=== PATIENT | female | born 1980 | race Caucasian/White ===

== ENCOUNTER 2017-07-13 19:15 | Outpatient (CLI) | payer BC | END 2017-07-14 06:35 | disposition home or self-care (01) | LOC: SLEEP 19:15 | PROVIDERS: ATTEND Pediatrics | DX: G47.33 Obstructive sleep apnea (adult) (pediatric) (principal) | CPT/HCPCS: 95810 ==

== ENCOUNTER 2017-07-27 20:48 | Outpatient (CLI) | payer BC | END 2017-07-28 06:25 | disposition home or self-care (01) | LOC: SLEEP 20:48 | PROVIDERS: ATTEND Nurse Practitioner Family | DX: G47.33 Obstructive sleep apnea (adult) (pediatric) (principal); G47.10 Hypersomnia, unspecified; R06.83 Snoring | CPT/HCPCS: 95811 ==

== ENCOUNTER 2018-04-06 09:21 | Emergency (ER) | payer BC ==
[~2018-04-06] VITALS: Ht 160 cm; Wt 108.9 kg
--- OUTSIDE RECORDS SUMMARY | 2018-04-06 09:27 | XMS REPORT ---
Author Author KARLA GARNER Organization [facility] Address [address] [place] [address] Care Team Providers Care Chief Of Staff Name Role Phone KARLA GARNER Unavailable PROBLEMS Type Condition ICD9-CM Code [id number] Code Onset Dates Condition Status SNOMED Code Problem Generalized anxiety disorder F41.1 Active 57028248 Problem Morbid obesity due to excess calories E66.01 Active 590058356 Problem Bipolar disorder, unspecified F31.9 Active 32373972 Problem SEFERINO (obstructive sleep apnea) G47.33 Active 29126900 Problem Anxiety state, unspecified F41.1 Active 822328546 ALLERGIES Substance Reaction Event Type Date Status Penicillin V Potassium hives Drug Allergy Mar, Active ENCOUNTERS Encounter Location Date Diagnosis [place] [address] [address] May, [address] [address] Apr, Generalized anxiety disorder F41.1 ; Morbid obesity due to excess calories E66.01 ; Pain in right shoulder M25.511 and SEFERINO (obstructive sleep apnea) G47.33 [place] [id number] [place] [address] Apr, [place] [address] [address] [place] [id number] [place] [address] Mar, Cervical radiculopathy M54.[address] [address] January, Bipolar disorder, unspecified F31.9 and Anxiety state, unspecified F41.[address] [address] Oct, Acute non-recurrent maxillary sinusitis J01.00 and Strep pharyngitis J02.0 IMMUNIZATIONS No Known Immunizations SOCIAL HISTORY Never Assessed REASON FOR VISIT Pain (acute) Right Shoulder and PT has seen urgent care for a possible pulled muscle- [place] [facility] PLAN OF CARE Activity Details Follow Up 3 Weeks Reason: VITAL SIGNS Height 63 in 2017-03-30 Weight 246.8 lbs 2017-03-30 Temperature 98.8 degrees Fahrenheit 2017-03-30 Heart Rate 86 bpm 2017-03-30 Respiratory Rate 20 2017-03-30 BMI 43.71 kg/m2 2017-03-30 Blood pressure systolic 110 mmHg 2017-03-30 Blood pressure diastolic 74 mmHg 2017-03-30 MEDICATIONS Medication Instructions Dosage Frequency Start Date End Date Duration Status Gabapentin 300 MG Orally Three times a day 1-2 capsule 8h Mar, 0 days Active Cyclobenzaprine HCl 5 MG Orally Three times a day 1 tablet 8h Active Diclofenac Sodium 75 MG Orally Twice a day as needed 1 tablet with food or milk Active Tramadol HCl 50 mg Orally every 6 hrs 1 tablet as needed 6h Mar, Mar, 0 days Active RESULTS No Results PROCEDURES No Known procedures INSTRUCTIONS MEDICATIONS ADMINISTERED No Known Medications MEDICAL (GENERAL) HISTORY Type Description Date Medical History Bipolar Disorder Medical History Generalized Anxiety Disorder Surgical History Surgical History Abscess-after , left side of abdomen Hospitalization History abdominal wound infection-had wound vac 2012 Hospitalization History Childbirth
--- OUTSIDE RECORDS SUMMARY | 2018-04-06 09:27 | XMS REPORT ---
Author Author ROSARIO HAWLEY Organization [facility] Address [address] [place] [address] Care Team Providers Care Digital Printer Operator Name Role Phone ROSARIO HAWLEY Unavailable PROBLEMS Type Condition ICD9-CM Code [id number] Code Onset Dates Condition Status SNOMED Code Problem Generalized anxiety disorder F41.1 Active 97742737 Problem Morbid obesity due to excess calories E66.01 Active 052427286 Problem Bipolar disorder, unspecified F31.9 Active 62381634 Problem SEFERINO (obstructive sleep apnea) G47.33 Active 51421077 Problem Anxiety state, unspecified F41.1 Active 066625389 ALLERGIES Substance Reaction Event Type Date Status Penicillin V Potassium hives Drug Allergy Apr, Active ENCOUNTERS Encounter Location Date Diagnosis [place] [address] [address] May, [place] [address] [address] Apr, Generalized anxiety disorder F41.1 ; Morbid obesity due to excess calories E66.01 ; Pain in right shoulder M25.511 and SEFERINO (obstructive sleep apnea) G47.33 [place] [address] [place] [id number] [place] [phone] Apr, [place] [address] [place] [id number] [place] [address] Mar, Cervical radiculopathy M54.12 [place] [address] [address] January, Bipolar disorder, unspecified F31.9 and Anxiety state, unspecified F41.1 [place] [address] [place] [id number] [place] [address] Oct, Acute non-recurrent maxillary sinusitis J01.00 and Strep pharyngitis J02.0 IMMUNIZATIONS No Known Immunizations SOCIAL HISTORY Never Assessed REASON FOR VISIT [facility] VITAL SIGNS MEDICATIONS Medication Instructions Dosage Frequency Start Date End Date Duration Status Tramadol HCl 50 MG Orally every 6 hrs 1 tablet as needed 6h Active Gabapentin 300 MG Orally Three times a day 1-2 capsule 8h Mar, 0 days Active RESULTS No Results PROCEDURES No Known procedures INSTRUCTIONS MEDICATIONS ADMINISTERED No Known Medications MEDICAL (GENERAL) HISTORY Type Description Date Medical History Bipolar Disorder Medical History Generalized Anxiety Disorder Surgical History Surgical History Abscess-after , left side of abdomen Hospitalization History abdominal wound infection-had wound vac 2012 Hospitalization History Childbirth
--- OUTSIDE RECORDS SUMMARY | 2018-04-06 09:27 | XMS REPORT ---
Author Author BEL WHITE Organization [facility] Address [address] [place] [address] Care Team Providers Care Patient Service Rep Name Role Phone BEL WHITE Unavailable PROBLEMS Type Condition ICD9-CM Code [id number] Code Onset Dates Condition Status SNOMED Code Problem Generalized anxiety disorder F41.1 Active 33835597 Problem Morbid obesity due to excess calories E66.01 Active 024511718 Problem Bipolar disorder, unspecified F31.9 Active 76415520 Problem SEFERINO (obstructive sleep apnea) G47.33 Active 09206012 Problem Anxiety state, unspecified F41.1 Active 253578494 ALLERGIES Substance Reaction Event Type Date Status Penicillin V Potassium hives Drug Allergy Oct, Active SOCIAL HISTORY Never Assessed PLAN OF CARE Activity Details Follow Up prn Reason: VITAL SIGNS Height 63 in 2016-11-11 Weight 247 lbs 2016-11-11 Temperature 97.9 degrees Fahrenheit 2016-11-11 Heart Rate 100 bpm 2016-11-11 Respiratory Rate 20 2016-11-11 BMI 43.75 kg/m2 2016-11-11 Blood pressure systolic 120 mmHg 2016-11-11 Blood pressure diastolic 88 mmHg 2016-11-11 MEDICATIONS Medication Instructions Dosage Frequency Start Date End Date Duration Status Azithromycin 250 MG Orally Once a day 2 tablets on the first day, then 1 tablet daily for 4 days 24h Oct, Nov, 5 day(s) Active RESULTS Name Result Date Reference Range STREP A (IN HOUSE) 2016-11-11 STREP A Positive Control + Lot # [id number] Exp date PROCEDURES Procedure Date Ordered Result Body Site STREP A ASSAY W/OPTIC Nov 11, 2016 IMMUNIZATIONS No Known Immunizations MEDICAL (GENERAL) HISTORY Type Description Date Medical History Bipolar Disorder Medical History Generalized Anxiety Disorder Surgical History Surgical History Abscess-after , left side of abdomen Hospitalization History abdominal wound infection-had wound vac 2012 Hospitalization History Childbirth
--- OUTSIDE RECORDS SUMMARY | 2018-04-06 09:27 | XMS REPORT ---
Author Author KARIME GOMEZ Organization [facility] Address [address] [place] [address] Care Team Providers Care Chief Construction Inspector Name Role Phone KARIME GOMEZ Unavailable PROBLEMS Type Condition ICD9-CM Code KZT19-HN Code Onset Dates Condition Status SNOMED Code Problem Generalized anxiety disorder F41.1 Active 64960722 Problem Morbid obesity due to excess calories E66.01 Active 848722373 Problem Bipolar disorder, unspecified F31.9 Active 84935266 Problem SEFERINO (obstructive sleep apnea) G47.33 Active 63035911 Problem Anxiety state, unspecified F41.1 Active 410021172 ALLERGIES No Information SOCIAL HISTORY Never Assessed PLAN OF CARE Activity Details Follow Up next available Reason:anxiety VITAL SIGNS MEDICATIONS Unknown Medications RESULTS No Results PROCEDURES Procedure Date Ordered Result Body Site Psychotherapy, patient &/family, 45 minutes, established patient January 25, 2017 IMMUNIZATIONS No Known Immunizations MEDICAL (GENERAL) HISTORY Type Description Date Medical History Bipolar Disorder Medical History Generalized Anxiety Disorder Surgical History Surgical History Abscess-after , left side of abdomen Hospitalization History abdominal wound infection-had wound vac 2012 Hospitalization History Childbirth
--- OUTSIDE RECORDS SUMMARY | 2018-04-06 09:28 | XMS REPORT ---
Author Author ROSARIO HAWLEY Organization [facility] Address [address] [place] [address] Care Team Providers Care Family Medicine Chair Name Role Phone ROSARIO HAWLEY Unavailable PROBLEMS Type Condition ICD9-CM Code GVJ06-SW Code Onset Dates Condition Status SNOMED Code Problem Generalized anxiety disorder F41.1 Active 78651012 Problem Morbid obesity due to excess calories E66.01 Active 025262361 Problem Bipolar disorder, unspecified F31.9 Active 68437033 Problem SEFERINO (obstructive sleep apnea) G47.33 Active 08828878 Problem Anxiety state, unspecified F41.1 Active 447498780 ALLERGIES No Information ENCOUNTERS Encounter Location Date Diagnosis [place] [address] [address] May, 2017 [place] [address] [address] Apr, 2017 Generalized anxiety disorder F41.1 ; Morbid obesity due to excess calories E66.01 ; Pain in right shoulder M25.511 and SEFERINO (obstructive sleep apnea) G47.33 [place] [address] [place] [id number] [place] [address] 15 Apr, 2017 [place] [address] [address] Mar, 2017 Cervical radiculopathy M54.12 [place] [address] [address] January, Bipolar disorder, unspecified F31.9 and Anxiety state, unspecified F41.1 [place] [address] [address] Oct, Acute non-recurrent maxillary sinusitis J01.00 and Strep pharyngitis J02.0 IMMUNIZATIONS No Known Immunizations SOCIAL HISTORY Never Assessed REASON FOR VISIT Sleep study paperwork PLAN OF CARE VITAL SIGNS MEDICATIONS Unknown Medications RESULTS No Results PROCEDURES No Known procedures INSTRUCTIONS MEDICATIONS ADMINISTERED No Known Medications MEDICAL (GENERAL) HISTORY Type Description Date Medical History Bipolar Disorder Medical History Generalized Anxiety Disorder Surgical History Surgical History Abscess-after , left side of abdomen Hospitalization History abdominal wound infection-had wound vac 2012 Hospitalization History Childbirth
[2018-04-06] MEDS ORDERED: FLUT9.9S NS (09:56)
[2018-04-06] MEDS ORDERED: CLAR-19 PO (09:56)
--- NOTE | 2018-04-06 10:32 | ED General ---
General Chief Complaint: Psych/Social Disorder Stated Complaint: TIGHTNESS IN CHEST Nursing Triage Note: PT CO OF BEING AXIETY STATES HAS BEEN SEEN SEVERAL TIMES OVER PAST 3 WEEKS FOR C/P AND ANXIETY, PT STATES HAS TIGHTNESS, PT IS HYPERVENTILATING AT THIS X. PT STATES WAS TOLD HAS SOMETHING ON CXR AT URGENT CARE DOES NOT KNOW WHAT IT IS. PT STATES WAS DX W GERD BUT NOT PUT ON ANY MEDS. PT ANXIETY LEVEL HIGH AT THIS X. Nursing Sepsis Screen: No Definite Risk (BARB RIVERA) Source of Information: Old Records (MARIO VANCE MD) History of Present Illness Date Seen by Provider: Apr 06, 2018 Time Seen by Provider: 09:40 Initial Comments This is a 38 y.o female presenting to the ED with chief complaint of anxiety attack. Patient reports that she was recently at an urgent care in [place] for sinusitis and was told that her chest x-ray should some kind of abnormal changes, but was not able to know for sure until they received prior x-rays from [place] where she was seen in the ED. Not knowing the results of the x- ray has brought on severe anxiety. Patient was seen in the ED in [place] last week for a similar episode of anxiety, patient was prescribed lorazepam for but she has not taken any of it. She currently is complaining of tingling in her face, dizziness, shaky, nausea and vomiting. Pt feels like her skin on her chest is burning and radiates to the back. Pt is a smoker. She has a history of bipolar disorder, she states she was on Celexa and Seroquel 5 years ago, but stopped taking them. (BARB RIVERA STUDENT) Allergies and Home Medications Allergies Coded Allergies: Penicillins (Verified Allergy, Unknown, 04/06/18) Home Medications Clarithromycin 500 Mg Tablet, 500 MG PO BID, (Reported) Fluticasone Propionate 9.9 Ml [place].susp, Unknown Dose NS DAILY, (Reported) 1 SPRAY EACH NARE DAILY Lorazepam 1 Mg Tablet, 1 MG SL Q6H PRN for ANXIETY Prescribed by: MARIO GARDNER on 04/06/18 1255 Patient Home Medication List Home Medication List Reviewed: Yes (BARB RIVERA) Review of Systems Constitutional: see HPI, dizziness EENTM: nose congestion Respiratory: short of breath Cardiovascular: see HPI Gastrointestinal: no symptoms reported Genitourinary: no symptoms reported Musculoskeletal: no symptoms reported Skin: other (burning of the skin on the chest and back ) Psychiatric/Neurological: See HPI, Anxiety (LILIANABARB Rezolve STUDENT) Past Ahsbeir-Ehsqtg-Gidkpb Hx Patient Social History Alcohol Use: Denies Use Recreational Drug Use: No Smoking Status: Current Everyday Smoker Type Used: Electronic/Vapor Recent Foreign Travel: No Contact w/Someone Who Travel: No Recent Infectious Disease Expo: No Recent Hopitalizations: No Physical Abuse: No Sexual Abuse: No (LILIANABARB Rezolve DALE) Past Medical History Respiratory: Yes Sleep Apnea Currently Using CPAP: No Cardiac: No Neurological: No Genitourinary: No Gastrointestinal: Yes Gastroesophageal Reflux Musculoskeletal: No Endocrine: No HEENT: No Cancer: No Psychosocial: Yes Anxiety Nursing Suicide Risk Score: 0 (SHAWNLALAWILLIAMBARB Rezolve DALE) Physical Exam Vital Signs Vital Signs - First Documented 04/06/18 09:25 Temp 97.1 Pulse 77 Resp 28 B/P (MAP) 128/79 (95) Pulse Ox 99 (MARIO VANCE MD) Vital Signs Capillary Refill : Less Than 3 Seconds (SHAWNBARB DIEGO Rezolve DALE) Height, Weight, BMI Height: 5'3.00" Weight: 240lbs. oz. 108.511338un; BMI Method:Stated General Appearance: WD/WN, Anxious (LILIANABARB [employer] STUDENT) General Appearance: Obese HEENT: PERRL/EOMI, Normal ENT Inspection Neck: Normal Inspection Respiratory: Lungs Clear, Normal Breath Sounds, No Accessory Muscle Use, No Respiratory Distress Cardiovascular: Regular Rate, Rhythm, No Edema, No Murmur Gastrointestinal: Non Tender, Soft Extremity: Normal Inspection, No Pedal Edema Neurologic/Psychiatric: Alert, Oriented x3, No Motor/Sensory Deficits, vp account director II- XII Norm as Tested, Other (extremely anxious) Skin: Normal Color, Warm/Dry (MARIO VANCE MD) Progress/Results/Core Measures Suspected Sepsis Recent Fever Within 48 Hours: No Infection Criteria Present: None New/Unexplained Altered Menta: No Sepsis Screen: No Definite Risk SIRS Temperature:97.1 Pulse: 77 Respiratory Rate: 28 Blood Pressure 128 /79 Mean: 95 (BARB RIVERA MED STUDENT) Results/Orders Lab Results Laboratory Tests Test 04/06/18 11:30 Range/Units Urine Color YELLOW Urine Clarity CLEAR Urine pH 8 5-9 Urine Specific [place] 1.010 L 1.016-1.022 Urine Protein NEGATIVE NEGATIVE Urine Glucose (UA) NEGATIVE NEGATIVE Urine Ketones NEGATIVE NEGATIVE Urine Nitrite NEGATIVE NEGATIVE Urine Bilirubin NEGATIVE NEGATIVE Urine Urobilinogen NORMAL NORMAL MG/DL Urine Leukocyte Esterase NEGATIVE NEGATIVE Urine RBC (Auto) 2+ H NEGATIVE Urine RBC RARE /HPF Urine WBC 0-2 /HPF Urine Squamous Epithelial Cells 2-5 /HPF Urine Crystals NONE /LPF Urine Bacteria NEGATIVE /HPF Urine Casts NONE /LPF Urine Mucus NEGATIVE /LPF Urine Culture Indicated NO Urine Test NEGATIVE NEGATIVE Urine Opiates Screen NEGATIVE NEGATIVE Urine Oxycodone Screen NEGATIVE NEGATIVE Urine Methadone Screen NEGATIVE NEGATIVE Urine Propoxyphene Screen NEGATIVE NEGATIVE Urine Barbiturates Screen NEGATIVE NEGATIVE Ur Tricyclic Antidepressants Screen NEGATIVE NEGATIVE Urine Phencyclidine Screen NEGATIVE NEGATIVE Urine Amphetamines Screen NEGATIVE NEGATIVE Urine Methamphetamines Screen NEGATIVE NEGATIVE Urine Benzodiazepines Screen NEGATIVE NEGATIVE Urine Cocaine Screen NEGATIVE NEGATIVE Urine Cannabinoids Screen NEGATIVE NEGATIVE (MARIO VANCE MD) My Orders Orders - MARIO VANCE MD Drug Screen Stat (Urine) (04/06/18 11:31) Hcg,Qualitative Urine (04/06/18 11:31) Ua Culture If Indicated (04/06/18 11:31) Lorazepam Tablet (Ativan Tablet) (04/06/18 11:45) Lorazepam Tablet (Ativan Tablet) (04/06/18 11:38) Chest Pa/Lat (2 View) (04/06/18 11:57) (MARIO VANCE MD) Medications Given in ED (MARIO VANCE MD) Vital Signs/I&O (MARIO VANCE MD) Vital Signs/I&O Capillary Refill : Less Than 3 Seconds (BARB RIVERA MED STUDENT) Blood Pressure Mean: 95 Progress Note #1: Time: 11:20 Progress Note Pt is still very anxious, she is agreeable to antianxiety medications. Half of records from the [place] ED visit were reviewed, pt was worked up extensively. Waiting on the other half of the records including the chest x-ray and CT. Progress Note #2: Time: 12:00 Progress Note Records have not been sent. Will repeat the chest x ray. Patient's anxiety has improved. Progress Note #3: Time: 13:00 Progress Note X ray is unremarkable, will D/C patient with lorazepam. (BARB RIVERA MED STUDENT) Progress Note : Progress Note Patient was interviewed, seen, and examined by me personally along with Barb 's IVONNE Rivera student. I agree with her history, exam, assessment, plan, and documentation with the following additions and changes. Patient was seen in an emergency room in [place]. Reports were eventually received. Labs were unremarkable. She had a CT scan of the head which was also unremarkable. Patient was seen for further care for possible sinus infection at an urgent care in [place]. An x-ray was performed there and the practitioner communicated to the patient there was a possible pulmonary nodule. This that the patient due to a panic attack. She presents to the emergency room now panicking and hyperventilating. Patient reports there was a recent of her father and a move that has caused her increased stress. She has a remote history of anxiety and panic attacks but has not had problems with that in recent years. She previously was treated with Celexa and Seroquel for bipolar disorder and anxiety. She is not presently established with a behavioral health provider. Patient received Ativan orally and a 2 view chest x-ray was performed. The x-ray was unremarkable. Ativan called her significantly. She was dismissed home with encouragement to see a behavioral health provider as soon as possible. See exam above. (MARIO VANCE MD) Diagnostic Imaging Diagonstic Imaging: Xray Plain Films/CT/US/NM/MRI: chest Comments Xray and report reviewed by me, see report below: NAME: ROSANGELA SCOTT MED REC#: [id number] PT STATUS: REG ER : 1980 PHYSICIAN: MARIO VANCE MD ADMIT DATE: 04/06/18/ER Draft Date of Exam:04/06/18 CHEST PA/LAT (2 VIEW) INDICATION: Tightness in the chest. TIME OF EXAM: 12:28 p.m. COMPARISON: No prior studies are available for comparison. The heart size is normal. The pulmonary vascularity is unremarkable. The lungs are clear. No infiltrate, effusion or pneumothorax is detected. IMPRESSION: No acute cardiopulmonary process is detected. Dictated on workstation # [id number] Dict: 04/06/18 1223 Trans: 04/06/18 1224 [id number] Interpreted by: ALEXANDRIA LAWSON MD Electronically signed by: (BARB RIVERA MED STUDENT) Departure Impression Primary Impression: Panic attack Disposition: HOME, SELF-CARE Condition: Improved Departure-Patient Inst. Referrals: NO,LOCAL PHYSICIAN (PCP/Family) Primary Care Physician Patient Instructions: Anxiety, Adult (DC) Add. Discharge Instructions: Establish with a primary care provider and a behavioral health provider soon as possible. In the meantime, use Ativan as prescribed for anxiety. Return to care if symptoms worsen again. There was no evidence of any nodules or other abnormal findings on your chest x-ray today. All discharge instructions reviewed with patient and/or family. Voiced understanding. Scripts Lorazepam (Ativan) 1 Mg Tablet 1 MG SL Q6H PRN for ANXIETY, #8 TAB Prov: MARIO VANCE MD 04/06/18 BARB RIVERA MED STUDENT Apr 06, 2018 10:32 MARIO VANCE MD Apr 06, 2018 12:55
[2018-04-06] MEDS ORDERED: LORazepam 0.5 MG (ATIVAN) TABLET ONE (11:38)
[2018-04-06] MEDS ORDERED: LORazepam 1 MG (ATIVAN) TAB PO ONE (11:45)
[2018-04-06 11:51] LABS: HCG,QUALITATIVE URINE NEGATIVE (NEGATIVE)
[2018-04-06 11:52] LABS: BILIRUBIN,URINE NEGATIVE (NEGATIVE); CLARITY,URINE CLEAR; COLOR,URINE YELLOW; GLUCOSE, URINE (UA) NEGATIVE (NEGATIVE); KETONES,URINE NEGATIVE (NEGATIVE); LEUKOCYTE ESTERASE ,URINE NEGATIVE (NEGATIVE); NITRITE,URINE NEGATIVE (NEGATIVE); PH,URINE 8 (5-9); PROTEIN,URINE NEGATIVE (NEGATIVE); UROBILINOGEN,URINE NORMAL (NORMAL)
[2018-04-06 11:58] LABS: AMPHETAMINE SCREEN, URINE NEGATIVE (NEGATIVE); BARBITURATE SCREEN URINE NEGATIVE (NEGATIVE); BENZODIAZEPINES SCREEN URINE NEGATIVE (NEGATIVE); CANNABINOID SCREEN, URINE NEGATIVE (NEGATIVE); COCAINE SCREEN URINE NEGATIVE (NEGATIVE); METHADONE STAT NEGATIVE (NEGATIVE); METHAMPHETAMINE SCREEN URINE S NEGATIVE (NEGATIVE); OPIATE SCREEN URINE NEGATIVE (NEGATIVE); OXYCODONE STAT NEGATIVE (NEGATIVE); PROPOXYPHENE STAT NEGATIVE (NEGATIVE); TRICYCLIC ANTIDEPRESSANTS SCRE NEGATIVE (NEGATIVE)
[2018-04-06 12:02] LABS: BACTERIA,URINE NEGATIVE /HPF; RBC,URINE RARE /HPF; WBC,URINE 0-2 /HPF
--- NOTE | 2018-04-06 12:25 | Diagnostic Imaging Report ---
INDICATION: Tightness in the chest. TIME OF EXAM: 12:28 p.m. COMPARISON: No prior studies are available for comparison. The heart size is normal. The pulmonary vascularity is unremarkable. The lungs are clear. No infiltrate, effusion or pneumothorax is detected. IMPRESSION: No acute cardiopulmonary process is detected. Dictated by: Dictated on workstation # [id number]
[2018-04-06] MEDS ORDERED: LORA-405 SL (12:55)
[2018-04-06 13:09] VITALS: BP 128/79
== END 2018-04-06 13:11 | disposition home or self-care (01) ==
LOC: EDUNIT# 09:21 → ER 09:24
DX: F41.0 Panic disorder [episodic paroxysmal anxiety] (principal); G47.30 Sleep apnea, unspecified; K21.9 Gastro-esophageal reflux disease without esophagitis; F17.210 Nicotine dependence, cigarettes, uncomplicated; Z88.0 Allergy status to penicillin; Z79.51 Long term (current) use of inhaled steroids
CPT/HCPCS: 71046; 80306; 81000; 84703

== ENCOUNTER 2018-04-07 23:49 | Emergency (ER) | payer BC ==
[~2018-04-07] VITALS: Ht 160 cm; Wt 108.9 kg
[~2018-04-07 23:49] MED LIST: CLAR-19 PO; FLUT9.9S NS; LORA-405 SL
[2018-04-08] MEDS ORDERED: ONDANSETRON 4 MG/2 ML (SDV) Z0FRAN IVP ONE (00:30)
[2018-04-08 00:41] LABS: BASOPHILS % (AUTO) 0 % (0-10); EOSINOPHILS # (AUTO) 0.1 10^3/uL (0.0-0.3); EOSINOPHILS % (AUTO) 1 % (0-10); HEMATOCRIT 39 % (35-52); HEMOGLOBIN 13.6 G/DL (11.5-16.0); LYMPHOCYTES # (AUTO) 2.8 X 10^3 (1.0-4.0); LYMPHOCYTES % (AUTO) 30 % (12-44); MEAN CORPUSCULAR HEMOGLOBIN 28 PG (25-34); MEAN CORPUSCULAR HGB CONC 35 G/DL (32-36); MEAN CORPUSCULAR VOLUME 80 FL (80-99); MEAN PLATELET VOLUME 11.1 FL (7.4-10.4); MONOCYTES # (AUTO) 0.8 X 10^3 (0.0-1.0); MONOCYTES % (AUTO) 9 % (0-12); NEUTROPHILS # (AUTO) 5.6 X 10^3 (1.8-7.8); NEUTROPHILS % (AUTO) 60 % (42-75); PLATELET COUNT 270 10^3/uL (130-400); RED BLOOD COUNT 4.92 10^6/uL (4.35-5.85); WHITE BLOOD COUNT 9.4 10^3/uL (4.3-11.0)
[2018-04-08 00:58] LABS: ALANINE AMINOTRANSFERASE 15 U/L (0-55); ALKALINE PHOSPHATASE 61 U/L (40-136); BILIRUBIN,TOTAL 0.4 MG/DL (0.1-1.0); BUN/CREATININE RATIO 13; CALCIUM 9.6 MG/DL (8.5-10.1); CARBON DIOXIDE 22 MMOL/L (21-32); CHLORIDE 107 MMOL/L (98-107); CREATININE SERUM 0.98 MG/DL (0.60-1.30); GFR ESTIMATED > 60; GLUCOSE 90 MG/DL (70-105); POTASSIUM 3.8 MMOL/L (3.6-5.0); SODIUM 138 MMOL/L (135-145); TOTAL PROTEIN 6.5 GM/DL (6.4-8.2)
[2018-04-08 01:18] LABS: TSH (THYROID ANALYZER) 0.41 UIU/ML (0.35-4.94)
[2018-04-08] MEDS ORDERED: NS 250 ML (IVPB) BAG IV ONE (01:30)
[2018-04-08] MEDS ORDERED: IOHEXOL 350 MG/ML 100 ML (OMNIPAQUE 350) VIAL IV ONE (01:30)
--- NOTE | 2018-04-08 01:55 | ED General ---
General Chief Complaint: General Problems/Pain Stated Complaint: CLOGGED EARS DRY MOUTH VOMITING Source of Information: Patient History of Present Illness Date Seen by Provider: Apr 08, 2018 Time Seen by Provider: 00:05 Initial Comments PT ARRIVES VIA POV FROM HOME C/O "BILE TASTE" STATES "BAD TASTE RUNNING DOWN MY NOSE INTO MY THROAT" "I'M THROWING UP-I CAN'T KEEP ANYTHING DOWN" --STATES SHE HAS VOMITED OFF AND ON , TOTAL OF 4-5 TIMES, OVER THE LAST FEW DAYS FEELS LIKE SHE HAS A LUMP IN HER THROAT STATES SHE HAS BEEN NUMB ACROSS HER NOSE STATES "I FEEL LIKE I'M CHOKING THEN I PANIC" SYMPTOMS ON GOING X 3 WEEKS PT WAS SEEN AT [facility] ON 04/03/18 AND GIVEN RX FOR CLARITHROMYCIN AND FLUTICASONE NASAL SPRAY WAS SEEN HERE YESTERDAY FOR PANIC ATTACK AND GIVEN RX FOR LORAZEPAM--HAS NOT TAKEN ANY PRIOR TO THOSE VISITS, STATES SHE WAS SEEN IN AN ER IN [place] 2 WEEKS AGO, AND WAS DX WITH GERD AND A SINUS INFECTION. ALSO DX WITH PANIC ATTACK PCP: [facility] Allergies and Home Medications Allergies Coded Allergies: Penicillins (Verified Allergy, Unknown, 04/06/18) Home Medications Clarithromycin 500 Mg Tablet, 500 MG PO BID, (Reported) Fluticasone Propionate 9.9 Ml [place].susp, Unknown Dose NS DAILY, (Reported) 1 SPRAY EACH NARE DAILY Lorazepam 1 Mg Tablet, 1 MG SL Q6H PRN for ANXIETY Prescribed by: MARIO GARDNER on 04/06/18 1255 Pseudoephedrine HCl 120 Mg Tablet.er, 120 MG PO BID PRN for CONGESTION Prescribed by: BELEN DIAZ on 04/14/18 1815 Patient Home Medication List Home Medication List Reviewed: Yes Review of Systems Constitutional: no symptoms reported EENTM: see HPI Respiratory: no symptoms reported Cardiovascular: no symptoms reported Gastrointestinal: see HPI Genitourinary: no symptoms reported : No LMP: Apr 08, 2018 (HAD PERIOD FOR 3 MONTHS STRAIGHT, ENDED 04/06/18. NO CONTROL. 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 ) Musculoskeletal: no symptoms reported Skin: no symptoms reported Psychiatric/Neurological: See HPI, Anxiety Hematologic/Lymphatic: No Symptoms Reported Immunological/Allergic: no symptoms reported Past Qjlspnf-Gvtihg-Dppyjn Hx Patient Social History Alcohol Use: Denies Use Recreational Drug Use: No Smoking Status: Current Everyday Smoker (2 PPD) Type Used: Cigarettes (2 PPD), Electronic/Vapor Recent Foreign Travel: No Contact w/Someone Who Travel: No Recent Hopitalizations: No Physical Abuse: No Sexual Abuse: No Seasonal Allergies Seasonal Allergies: No Past Medical History Surgeries: Yes ( X 1--SUBSEQUENT INFECTION AND DEBRIDEMENT OF WOUND) Section Respiratory: Yes Sleep Apnea Currently Using CPAP: No Cardiac: No Neurological: No Female Reproductive Disorders: Menstrual Problems Genitourinary: No Gastrointestinal: Yes Gastroesophageal Reflux Musculoskeletal: No Endocrine: No HEENT: No Cancer: No Psychosocial: Yes Anxiety Nursing Suicide Risk Score: 0 Integumentary: No Blood Disorders: No Physical Exam Vital Signs Capillary Refill : Height, Weight, BMI Height: 5'3.00" Weight: 240lbs. oz. 108.537448zi; BMI Method:Stated General Appearance: No Apparent Distress, WD/WN HEENT: PERRL/EOMI, TMs Normal, Pharynx Normal, Other (MILD MAXILLARY SINUS TENDERNESS, CLEAR POST NASAL DRAINAGE) Neck: Full Range of Motion, Normal Inspection, Non Tender, Supple; No Lymphadenopathy (L), No Lymphadenopathy (R) Respiratory: Normal Breath Sounds, No Accessory Muscle Use, No Respiratory Distress Cardiovascular: Regular Rate, Rhythm, No Edema, No JVD, No Murmur, Normal Peripheral Pulses Gastrointestinal: Non Tender, Soft Extremity: Normal Range of Motion Neurologic/Psychiatric: Alert, Oriented x3, No Motor/Sensory Deficits, sports physiologist II- XII Norm as Tested, Other (ANXIOUS) Skin: Normal Color, Warm/Dry Progress/Results/Core Measures Suspected Sepsis SIRS Temperature: Pulse: Respiratory Rate: Blood Pressure / Mean: Results/Orders Lab Results My Orders Medications Given in ED Vital Signs/I&O Capillary Refill : Progress Note : Progress Note UNEVENTFUL ER STAY AT DISMISSAL, PT NOW ALSO STATES THAT SHE HAS AN APPOINTMENT WITH DR. [facility] THIS MONDAY FOR THIS PROBLEM WELL. Diagnostic Imaging Comments CT HEAD/MAXILLOFACIALS--NO ACUTE PROCESS, PER [facility] VIA FAX @ 0145 CT NECK SOFT TISSUES--NO ACUTE PROCESS, NO MASS OR FLUID COLLECTION, NO ABNORMAL EDEMA--PER [facility] VIA FAX @ 8781 Reviewed: Reviewed by Me Departure Impression Primary Impression: Sinus pressure Additional Impressions: Post-nasal drainage Globus sensation Anxiety Disposition: HOME, SELF-CARE Condition: Stable Departure-Patient Inst. Referrals: NO,LOCAL PHYSICIAN (PCP/Family) Primary Care Physician Patient Instructions: Sinus Headache (DC), Sinusitis, Adult (DC) Add. Discharge Instructions: CONTINUE YOUR CURRENT MEDICATIONS PRESCRIBED FOLLOW UP WITH OF CHOICE NEXT WEEK FOR FURTHER CARE All discharge instructions reviewed with patient and/or family. Voiced understanding. MIGUEL COTTON DO Apr 08, 2018 01:55
[2018-04-08 02:11] VITALS: BP 109/76
--- NOTE | 2018-04-08 07:44 | Diagnostic Imaging Report ---
PROCEDURE: CT neck soft tissue with contrast. TECHNIQUE: Multiple contiguous axial images were obtained through the neck after the administration of contrast. INDICATION: Sinus infection and sore throat. FINDINGS: The visualized intracranial structures are unremarkable. The sinuses and mastoid air cells are clear. Globes and intraorbital structures are unremarkable. The nasopharyngeal, oropharyngeal and hypopharyngeal tissues are symmetrical without mass effect. The parotid, submandibular and thyroid glands are normal in appearance. The lung apices are clear. Major vascular structures of the neck enhance in a normal fashion. There is no pathologically enlarged adenopathy or mass in the neck. Cervical spine is unremarkable. IMPRESSION: Unremarkable CT neck. Dictated by: Dictated on workstation # [id number]
--- NOTE | 2018-04-08 07:45 | Diagnostic Imaging Report ---
PROCEDURE: CT head and maxillofacial without contrast. TECHNIQUE: Multiple contiguous axial images were obtained through the head and facial bones without the use of intravenous contrast. INDICATION: Sinus infection and sore throat. FINDINGS: The ventricles and sulci are within normal limits. There is no hydrocephalus. There is no midline shift. There is no intracranial mass, hemorrhage or extra-axial fluid collection. Calvarium is intact. The sinuses and mastoid air cells are clear. There are no fractures. Soft tissues are unremarkable. IMPRESSION: No acute intracranial abnormality. Unremarkable maxillofacial CT Dictated by: Dictated on workstation # [id number]
== END 2018-04-08 02:14 | disposition home or self-care (01) ==
LOC: EDUNIT# 23:49 → ER 23:50
DX: J32.9 Chronic sinusitis, unspecified (principal); R09.82 Postnasal drip; F45.8 Other somatoform disorders; K21.9 Gastro-esophageal reflux disease without esophagitis; F41.9 Anxiety disorder, unspecified; Z88.0 Allergy status to penicillin; Z87.59 Personal history of other complications of pregnancy, childbirth and the puerperium
CPT/HCPCS: 36415; 70450; 70486; 70491; 80053; 84443; 84703; 85025; 96374

== ENCOUNTER → 2018-04-12 | Outpatient (CLI) | payer BC ==
[~2018-04-12] MED LIST changes: +PSEU120T17 PO
--- NOTE | 2018-04-12 13:46 | Diagnostic Imaging Report ---
EXAMINATION: Pelvic ultrasound. INDICATION: Abnormal bleeding. COMPARISON: There are no prior studies available for comparison. FINDINGS: The uterus is nongravid and not enlarged measuring 7.8 x 4.5 x 4.4 cm. The endometrial lining is not thickened measuring 2 mm. There is no focal mass involving the uterus to suggest a fibroid. Both ovaries were identified. There is good blood flow to each ovary, and there is no sign of a solid or cystic mass involving either ovary. There is no pelvic mass or free fluid collection noted. IMPRESSION: 1. The uterus is not enlarged, and the endometrial lining does not appear to be thickened. 2. There is no acute pelvic abnormality noted. Dictated by: Dictated on workstation # [id number]
== END ==
LOC: RAD 10:19
PROVIDERS: ATTEND Nurse Practitioner
DX: N93.8 Other specified abnormal uterine and vaginal bleeding (principal); L68.0 Hirsutism
CPT/HCPCS: 76830; 76856

== ENCOUNTER 2018-04-14 16:49 | Emergency (ER) | payer BC ==
[~2018-04-14] VITALS: Ht 160 cm; Wt 106.1 kg
[~2018-04-14 16:49] MED LIST changes: -PSEU120T17 PO
--- NOTE | 2018-04-14 17:29 | ED EENT ---
History of Present Illness General Chief Complaint: Nasal Problems Stated Complaint: SINUS PRESSURE Nursing Triage Note: pt states has been seen multiple times for the numbness in sinus/nasal area. pt verbalized dr garcia office stated everything was normal. pt was told this could be related to anxiety/panic attacks. pt states has been on ativan since and feels calm. pt verbalized starting using nasacort last four days. Source: patient Exam Limitations: no limitations History of Present Illness Date Seen by Provider: Apr 14, 2018 Time Seen by Provider: 17:25 Initial Comments to ER with reports of sinus pressure. This is been going on for about a month, she's been on 2 courses of antibiotics, she's been on steroids, denies any improvement. She has pressure in the back of her head, pressure in her ears, pressure behind both of her eyes. She had a CT head/neck here a few weeks ago which was unremarkable. She also saw Dr [facility] and was told her sinuses were normal. She currently rates her pain at 4 out of 10 Timing/Duration: gradual Severity: moderate Location: facial Associated Symptoms: denies symptoms Allergies and Home Medications Allergies Coded Allergies: Penicillins (Verified Allergy, Unknown, 04/06/18) Home Medications Clarithromycin 500 Mg Tablet, 500 MG PO BID, (Reported) Fluticasone Propionate 9.9 Ml [place].susp, Unknown Dose NS DAILY, (Reported) 1 SPRAY EACH NARE DAILY Lorazepam 1 Mg Tablet, 1 MG SL Q6H PRN for ANXIETY Prescribed by: MARIO GARDNER on 04/06/18 1255 Patient Home Medication List Home Medication List Reviewed: Yes Review of Systems Constitutional: see HPI; No chills, No fever Eyes: Pain Ears: No Symptoms Reported Nose: see HPI; denies clots, denies congestion, denies epistaxis; pain; denies bloody discharge, denies clear discharge, denies purulent discharge, denies serosanguinous discharge Mouth: no symptoms reported Throat: no symptoms reported Respiratory: no symptoms reported Cardiovascular: no symptoms reported Musculoskeletal: no symptoms reported Skin: no symptoms reported Neurological: No Symptoms Reported Hematologic/Lymphatic: No Symptoms Reported Immunological/Allergic: no symptoms reported Past Ktxcvam-Kznona-Iymbws Hx Patient Social History Type Used: Electronic/Vapor Recent Foreign Travel: No Contact w/Someone Who Travel: No Recent Infectious Disease Expo: No Recent Hopitalizations: No Physical Abuse: No Sexual Abuse: No Seasonal Allergies Seasonal Allergies: No Past Medical History Surgeries: Yes Section Respiratory: Yes Sleep Apnea Currently Using CPAP: No Cardiac: No Neurological: No Genitourinary: No Gastrointestinal: Yes Gastroesophageal Reflux Musculoskeletal: No Endocrine: No HEENT: No Cancer: No Psychosocial: Yes Anxiety Nursing Suicide Risk Score: 0 Integumentary: No Physical Exam Vital Signs Vital Signs - First Documented 04/14/18 17:09 Temp 98.0 Pulse 77 Resp 20 B/P (MAP) 123/90 (101) Pulse Ox 98 O2 Delivery Room Air Height, Weight, BMI Height: 5'3.00" Weight: 234lbs. oz. 106.144693fu; BMI Method:Stated General Appearance: WD/WN, no apparent distress Eyes: bilateral eye normal inspection, bilateral eye PERRL, bilateral eye EOMI Ears: bilateral ear auricle normal, bilateral ear canal normal, bilateral ear TM normal Mouth/Throat: normal mouth inspection, pharynx normal Neck: non-tender, full range of motion; No lymphadenopathy (R), No lymphadenopathy (L) Cardiovascular: regular rate, rhythm, no murmur Respiratory: normal breath sounds, no respiratory distress, no accessory muscle use Neurologic/Psychiatric: alert, normal mood/affect, oriented x 3 Skin: normal color, warm/dry Progress/Results/Core Measures Results/Orders My Orders Orders - BELEN DIAZ APRN Ketorolac Injection (Toradol Injection) (04/14/18 17:30) Pseudoephedrine Tablet (Sudafed Tablet) (04/14/18 17:30) Medications Given in ED Current Medications Medications Dose Ordered Sig/Jaden Route Start Time Stop Time Status Last Admin Dose Admin Ketorolac Tromethamine 60 mg ONCE ONCE IM 04/14/18 17:30 04/14/18 17:31 DC 04/14/18 17:35 60 MG Vital Signs/I&O 04/14/18 17:09 Temp 98.0 Pulse 77 Resp 20 B/P (MAP) 123/90 (101) Pulse Ox 98 O2 Delivery Room Air Blood Pressure Mean: 101 Departure Impression Primary Impression: Nasal congestion Disposition: 01 HOME, SELF-CARE Condition: Improved Departure-Patient Inst. Decision time for Depature: 17:40 Referrals: SAUD CRENSHAW MD (PCP) Primary Care Physician HEIDI COLEMAN APRN (Family) Primary Care Physician Patient Instructions: Sinus Headache (DC) Add. Discharge Instructions: All discharge instructions reviewed with patient and/or family. Voiced understanding. Scripts Pseudoephedrine HCl (Sudafed 12 Hour) 120 Mg Tablet.er 120 MG PO BID PRN for CONGESTION, #10 TAB Prov: BELEN DIAZ APRN 04/14/18 BELEN DIAZ APRN Apr 14, 2018 17:29
[2018-04-14] MEDS ORDERED: KETOROLAC 60 MG/2 ML VIAL IM ONE (17:30)
[2018-04-14] MEDS ORDERED: PSEUDOEPHEDRINE HCL 30 MG (SUDAFED) TAB PO ONE (17:30)
[2018-04-14] MEDS ORDERED: PSEU120T17 PO (18:15)
[2018-04-14 18:36] VITALS: BP 123/82
== END 2018-04-14 18:36 | disposition home or self-care (01) ==
LOC: EDUNIT# 16:49 → ER 16:50
DX: R09.81 Nasal congestion (principal); G47.30 Sleep apnea, unspecified; K21.9 Gastro-esophageal reflux disease without esophagitis; F41.9 Anxiety disorder, unspecified; Z88.0 Allergy status to penicillin; Z79.51 Long term (current) use of inhaled steroids; Z87.59 Personal history of other complications of pregnancy, childbirth and the puerperium
CPT/HCPCS: 96372; 99284

== ENCOUNTER 2018-04-24 09:45 | Outpatient (RCR) | payer BC ==
[~2018-04-24 09:45] MED LIST changes: +PSEU120T17 PO
[2018-05-10] MEDS ORDERED: SPIR50TA4 (23:41)
[2018-05-10] MEDS ORDERED: OMEP20CA12 (23:41)
[2018-05-10] MEDS ORDERED: ESCI10TA55 (23:41)
[2018-05-10] MEDS ORDERED: MONT10TA24 (23:41)
[2018-05-14] MEDS ORDERED: FEXO1TAB43 PO (12:25)
== END 2018-05-18 | disposition home or self-care (01) ==
LOC: CARD 09:45
PROVIDERS: ATTEND Nurse Practitioner Family
DX: R00.0 Tachycardia, unspecified (principal); R00.2 Palpitations
CPT/HCPCS: 93225; 93226

== ENCOUNTER 2018-04-26 11:10 | Outpatient (RCR) | payer BC ==
[2018-05-10] MEDS ORDERED: MONT10TA24 (23:41)
[2018-05-10] MEDS ORDERED: ESCI10TA55 (23:41)
[2018-05-10] MEDS ORDERED: OMEP20CA12 (23:41)
[2018-05-10] MEDS ORDERED: SPIR50TA4 (23:41)
[2018-05-14] MEDS ORDERED: FEXO1TAB43 PO (12:25)
== END 2018-05-18 | disposition home or self-care (01) ==
LOC: LAB 11:10 → EDSTATUS 11:20
PROVIDERS: ATTEND Nurse Practitioner Family
DX: R05 Cough (principal)

== ENCOUNTER 2018-04-28 11:55 | Emergency (ER) | payer BC ==
[~2018-04-28] VITALS: Ht 160 cm; Wt 105.2 kg
--- NOTE | 2018-04-28 12:50 | ED General ---
General Chief Complaint: General Problems/Pain Stated Complaint: STOMACH PAIN,SHAKING Nursing Triage Note: Pt ambulated to rm 10 w/o difficulty. Pt states she is currently taking Prednisone and missed a dose yesterday. Pt states she then became shakey, began having a headache, abdominal pain, neck/back/leg pain. Pt states she does have a history of anxiety, but when this nurse questioned if there is anything going on in the pt's life that could be exacerbating her anxiety, pt denied. Nursing Sepsis Screen: No Definite Risk Source of Information: Patient Exam Limitations: No Limitations (MARIO ROJO) History of Present Illness Date Seen by Provider: Apr 28, 2018 Time Seen by Provider: 12:24 Initial Comments Seen and evaluated. Patient with history of generalized anxiety, panic attacks, and bipolar disorder presents with complaints of bilateral upper quadrant abdominal pain as well as headache, bilateral hand tremors, cervical and lumbar tension, nausea, mild shortness of breath, and bilateral upper anterior thigh pain. She was recently prescribed prednisone to treat diffuse sinus pressure. Her first dose of prednisone was taken on 04/26/18 which she claims subsequently caused an uncomfortable increase in blood pressure and heart rate. She missed the following dose on 04/27/18 and woke up this morning to a self-reported panic attack and the symptoms listed above. She did not take her prescribed dose of Ativan today. Patient denies chest pain, heart palpitations, vomiting, and bowel and bladder changes. Timing/Duration: 4-6 Hours Associated Systoms: No Chest Pain; Headaches, Nausea/Vomiting, Shortness of Air ; No Syncope (MARIO ROJO) Allergies and Home Medications Allergies Coded Allergies: Penicillins (Verified Allergy, Unknown, 04/06/18) Home Medications Clarithromycin 500 Mg Tablet, 500 MG PO BID, (Reported) Fluticasone Propionate 9.9 Ml [place].susp, Unknown Dose NS DAILY, (Reported) 1 SPRAY EACH NARE DAILY Lorazepam 1 Mg Tablet, 1 MG SL Q6H PRN for ANXIETY Prescribed by: MARIO GARDNER on 04/06/18 1255 Pseudoephedrine HCl 120 Mg Tablet.er, 120 MG PO BID PRN for CONGESTION Prescribed by: BELEN DIAZ on 04/14/18 1815 Patient Home Medication List Home Medication List Reviewed: Yes (MARIO ROJO) Home Medication List Reviewed: Yes (HALLE GREER MD) Review of Systems Constitutional: see HPI EENTM: No blurred vision, No double vision, No throat pain Respiratory: short of breath Cardiovascular: No chest pain, No palpitations, No syncope Gastrointestinal: RUQ, LUQ, abdominal pain, nausea; No vomiting Genitourinary: No hematuria, No pain Musculoskeletal: back pain, neck pain Psychiatric/Neurological: Anxiety, Emotional Problems, Headache, Tremors Hematologic/Lymphatic: No Symptoms Reported Immunological/Allergic: no symptoms reported (MARIO ROJO) Constitutional: No chills, No fever EENTM: nose congestion Respiratory: No cough Skin: no symptoms reported (HALLE GREER MD) Past Ddlfmcc-Kuxype-Yhkesf Hx Past Med/Social Hx: Reviewed Nursing Past Med/Soc Hx (HALLE GREER MD) Patient Social History Alcohol Use: Denies Use Recreational Drug Use: No Smoking Status: Current Everyday Smoker Type Used: Cigarettes, Electronic/Vapor 2nd Hand Smoke Exposure: Yes Recent Foreign Travel: No Contact w/Someone Who Travel: No Recent Infectious Disease Expo: No Recent Hopitalizations: No Physical Abuse: No Sexual Abuse: No (MARIO ROJO) Seasonal Allergies Seasonal Allergies: No (MARIO ROOJ) Past Medical History Surgeries: Yes ( X 1--SUBSEQUENT INFECTION AND DEBRIDEMENT OF WOUND) Section Respiratory: Yes Sleep Apnea Currently Using CPAP: No Cardiac: No Neurological: No Female Reproductive Disorders: Menstrual Problems Genitourinary: No Gastrointestinal: Yes Gastroesophageal Reflux Musculoskeletal: No Endocrine: No HEENT: No Loss of Vision: Denies Cancer: No Psychosocial: Yes Anxiety, Bipolar Nursing Suicide Risk Score: 0 Integumentary: No Blood Disorders: No (MARIO ROJO) Family Medical History Reviewed Nursing Family Hx (HALLE GREER MD) Physical Exam Vital Signs Vital Signs - First Documented 04/28/18 11:57 Temp 97.3 Pulse 77 Resp 14 B/P (MAP) 130/98 (109) O2 Delivery Room Air (HALLE GREER MD) Vital Signs Capillary Refill : Less Than 3 Seconds (MARIO ROJO) Height, Weight, BMI Height: 5'3.00" Weight: 232lbs. oz. 105.062688pg; BMI Method:Stated General Appearance: WD/WN, Moderate Distress, Obese Eyes: Bilateral Eye Normal Inspection, Bilateral Eye PERRL, Bilateral Eye EOMI HEENT: PERRL/EOMI, TMs Normal, Normal ENT Inspection, Pharynx Normal Neck: Full Range of Motion, Normal Inspection, Supple Respiratory: Chest Non Tender, Lungs Clear, Normal Breath Sounds, No Accessory Muscle Use, No Respiratory Distress Cardiovascular: Regular Rate, Rhythm, No Edema, No Gallop, No JVD, No Murmur, Normal Peripheral Pulses Gastrointestinal: Normal Bowel Sounds, No Organomegaly, No Pulsatile Mass, Soft ; No Guarding; Tenderness (Tender to palpation LLQ) Neurologic/Psychiatric: Alert, Oriented x3; No Normal Mood/Affect (Anxious) Skin: Normal Color, Warm/Dry Lymphatic: No Adenopathy (MARIO ROJO STUDENT) General Appearance: Anxious HEENT: Other (moderate bilateral nasal congestion with erythema) Respiratory: Lungs Clear, Normal Breath Sounds Cardiovascular: Regular Rate, Rhythm, No Murmur Neurologic/Psychiatric: Alert, Oriented x3 (HALLE GREER MD) Progress/Results/Core Measures Suspected Sepsis Recent Fever Within 48 Hours: No Infection Criteria Present: None New/Unexplained Altered Menta: No Sepsis Screen: No Definite Risk SIRS Temperature:97.3 Pulse: 77 Respiratory Rate: 14 Laboratory Tests 04/28/18 13:09: White Blood Count 6.5 Blood Pressure 130 /98 Mean: 109 Laboratory Tests 04/28/18 13:09: Creatinine 0.88, Platelet Count 241, Total Bilirubin 0.4 (MARIO ROJO STUDENT) Results/Orders Lab Results Laboratory Tests Test 04/28/18 12:55 04/28/18 13:09 Range/Units Urine Color YELLOW Urine Clarity CLEAR Urine pH 8 5-9 Urine Specific [place] 1.010 L 1.016-1.022 Urine Protein NEGATIVE NEGATIVE Urine Glucose (UA) NEGATIVE NEGATIVE Urine Ketones NEGATIVE NEGATIVE Urine Nitrite NEGATIVE NEGATIVE Urine Bilirubin NEGATIVE NEGATIVE Urine Urobilinogen NORMAL NORMAL MG/DL Urine Leukocyte Esterase NEGATIVE NEGATIVE Urine RBC (Auto) NEGATIVE NEGATIVE Urine RBC NONE /HPF Urine WBC NONE /HPF Urine Squamous Epithelial Cells 2-5 /HPF Urine Crystals PRESENT H /LPF Urine Amorphous Sediment TRACE /LPF Urine Bacteria NEGATIVE /HPF Urine Casts NONE /LPF Urine Mucus NEGATIVE /LPF Urine Culture Indicated NO Urine Test NEGATIVE NEGATIVE White Blood Count 6.5 4.3-11.0 10^3/uL Red Blood Count 4.90 4.35-5.85 10^6/uL Hemoglobin 13.2 11.5-16.0 G/DL Hematocrit 40 35-52 % Mean Corpuscular Volume 81 80-99 FL Mean Corpuscular Hemoglobin 27 25-34 PG Mean Corpuscular Hemoglobin Concent 33 32-36 G/DL Red Cell Distribution Width 14.1 10.0-14.5 % Platelet Count 241 130-400 10^3/uL Mean Platelet Volume 10.8 H 7.4-10.4 FL Neutrophils (%) (Auto) 62 42-75 % Lymphocytes (%) (Auto) 30 12-44 % Monocytes (%) (Auto) 7 0-12 % Eosinophils (%) (Auto) 1 0-10 % Basophils (%) (Auto) 0 0-10 % Neutrophils # (Auto) 4.1 1.8-7.8 X 10^3 Lymphocytes # (Auto) 2.0 1.0-4.0 X 10^3 Monocytes # (Auto) 0.4 0.0-1.0 X 10^3 Eosinophils # (Auto) 0.1 0.0-0.3 10^3/uL Basophils # (Auto) 0.0 0.0-0.1 10^3/uL Sodium Level 139 135-145 MMOL/L Potassium Level 4.0 3.6-5.0 MMOL/L Chloride Level 110 H 98-107 MMOL/L Carbon Dioxide Level 21 21-32 MMOL/L Anion Gap 8 5-14 MMOL/L Blood Urea Nitrogen 12 7-18 MG/DL Creatinine 0.88 0.60-1.30 MG/DL Estimat Glomerular Filtration Rate > 60 BUN/Creatinine Ratio 14 Glucose Level 90 70-105 MG/DL Calcium Level 9.5 8.5-10.1 MG/DL Corrected Calcium 9.4 8.5-10.1 MG/DL Total Bilirubin 0.4 0.1-1.0 MG/DL Aspartate Amino Transf (AST/SGOT) 11 5-34 U/L Alanine Aminotransferase (ALT/SGPT) 20 0-55 U/L Alkaline Phosphatase 61 40-136 U/L C-Reactive Protein High Sensitivity 0.35 0.00-0.50 MG/DL Total Protein 6.8 6.4-8.2 GM/DL Albumin 4.1 3.2-4.5 GM/DL Amylase Level 35 25-125 U/L Lipase 18 8-78 U/L Free Thyroxine 1.18 0.70-1.48 NG/DL TSH [place] Testing 0.20 L 0.35-4.94 UIU/ML (HALLE GREER MD) My Orders Orders - HALLE GREER MD Amylase (04/28/18 12:38) Cbc With Automated Diff (04/28/18 12:38) Comprehensive Metabolic Panel (04/28/18 12:38) Hs C Reactive Protein (04/28/18 12:38) Lipase (04/28/18 12:38) Thyroid Analyzer (04/28/18 12:38) Ua Culture If Indicated (04/28/18 12:38) Urine Bedside (04/28/18 12:40) Free T4 (Free Thyroxine) (04/28/18 13:09) (HALLE GREER MD) Medications Given in ED Current Medications Medications Dose Ordered Sig/Jaden Route Start Time Stop Time Status Last Admin Dose Admin Ondansetron HCl 4 mg ONCE ONCE PO 04/28/18 13:30 04/28/18 13:31 DC 04/28/18 13:21 4 MG (HALLE GREER MD) Vital Signs/I&O 04/28/18 11:57 Temp 97.3 Pulse 77 Resp 14 B/P (MAP) 130/98 (109) O2 Delivery Room Air (HALLE GREER MD) Vital Signs/I&O Capillary Refill : Less Than 3 Seconds (MARIO ROJO MED STUDENT) Blood Pressure Mean: 109 Progress Note : Progress Note I had seen and evaluated the patient and agree with above except as indicated. I Have directed the plan of care. Patient is here with concerns related to sinuses but initially presented with concerns related to panic and all over pain and symptoms. This improved throughout the ER stay without any direct measures. We did check basic labs including thyroid. TSH was slightly low but T4 was okay. All of this was related to the patient who was feeling much better and feels much better now. We will continue therapy as indicated in discharge instructions. Discharged home with return precautions. Patient verbalize understanding instructions and agreement with plan. (HALLE GREER MD) Departure Impression Primary Impression: Sinus congestion Additional Impression: Anxiety Disposition: 01 HOME, SELF-CARE Condition: Improved Departure-Patient Inst. Referrals: SAUD CRENSHAW MD (PCP) Primary Care Physician HEIDI COLEMAN APRN (Family) Primary Care Physician Patient Instructions: Anxiety, Adult (DC), Chronic Sinusitis Add. Discharge Instructions: All discharge instructions reviewed with patient and/or family. Voiced understanding. Continue medications as prescribed at set decrease prednisone to 2 tablets daily instead of 3. You may use [id number] nasal saline spray and specifically you may try the menthol saline nasal spray as this may provide you better relief. Follow-up with your Dr. in a few days for recheck. Return for worse pain, fever, vomiting, weakness, breathing problems or other concerns as needed. Copy Copies To 1: SAUD CRENSHAW MD, JOSHUA MED STUDENT Apr 28, 2018 12:50 HALLE GREER MD Apr 28, 2018 15:22
[2018-04-28 13:06] LABS: BILIRUBIN,URINE NEGATIVE (NEGATIVE); CLARITY,URINE CLEAR; COLOR,URINE YELLOW; GLUCOSE, URINE (UA) NEGATIVE (NEGATIVE); KETONES,URINE NEGATIVE (NEGATIVE); LEUKOCYTE ESTERASE ,URINE NEGATIVE (NEGATIVE); NITRITE,URINE NEGATIVE (NEGATIVE); PH,URINE 8 (5-9); PROTEIN,URINE NEGATIVE (NEGATIVE); UROBILINOGEN,URINE NORMAL (NORMAL)
[2018-04-28 13:16] LABS: BASOPHILS % (AUTO) 0 % (0-10); EOSINOPHILS # (AUTO) 0.1 10^3/uL (0.0-0.3); EOSINOPHILS % (AUTO) 1 % (0-10); HEMATOCRIT 40 % (35-52); HEMOGLOBIN 13.2 G/DL (11.5-16.0); LYMPHOCYTES % (AUTO) 30 % (12-44); MEAN CORPUSCULAR HEMOGLOBIN 27 PG (25-34); MEAN CORPUSCULAR HGB CONC 33 G/DL (32-36); MEAN CORPUSCULAR VOLUME 81 FL (80-99); MEAN PLATELET VOLUME 10.8 FL (7.4-10.4); MONOCYTES # (AUTO) 0.4 X 10^3 (0.0-1.0); MONOCYTES % (AUTO) 7 % (0-12); NEUTROPHILS # (AUTO) 4.1 X 10^3 (1.8-7.8); NEUTROPHILS % (AUTO) 62 % (42-75); PLATELET COUNT 241 10^3/uL (130-400); RED CELL DISTRIBUTION WIDTH 14.1 % (10.0-14.5); WHITE BLOOD COUNT 6.5 10^3/uL (4.3-11.0)
[2018-04-28] MEDS ORDERED: ONDANSETRON 4 MG (ZOFRAN) ORAL DISSOLVE TAB PO ONE (13:30)
[2018-04-28 13:35] LABS: ALANINE AMINOTRANSFERASE 20 U/L (0-55); ALBUMIN 4.1 GM/DL (3.2-4.5); ALKALINE PHOSPHATASE 61 U/L (40-136); AMYLASE 35 U/L (25-125); BILIRUBIN,TOTAL 0.4 MG/DL (0.1-1.0); BUN/CREATININE RATIO 14; CALCIUM 9.5 MG/DL (8.5-10.1); CARBON DIOXIDE 21 MMOL/L (21-32); CHLORIDE 110 MMOL/L (98-107); CREATININE SERUM 0.88 MG/DL (0.60-1.30); GFR ESTIMATED > 60; GLUCOSE 90 MG/DL (70-105); LIPASE 18 U/L (8-78); SODIUM 139 MMOL/L (135-145); TOTAL PROTEIN 6.8 GM/DL (6.4-8.2)
[2018-04-28 13:36] LABS: AMORPHOUS SEDIMENT,UR TRACE /LPF; BACTERIA,URINE NEGATIVE /HPF
[2018-04-28 14:47] LABS: FREE T4 (FREE THYROXINE) 1.18 NG/DL (0.70-1.48)
[2018-04-28 15:27] VITALS: BP 117/78
== END 2018-04-28 15:27 | disposition home or self-care (01) ==
LOC: EDUNIT# 11:55 → ER 11:57
DX: F41.1 Generalized anxiety disorder (principal); R09.81 Nasal congestion; F31.9 Bipolar disorder, unspecified; G47.30 Sleep apnea, unspecified; K21.9 Gastro-esophageal reflux disease without esophagitis; F17.210 Nicotine dependence, cigarettes, uncomplicated; Z98.890 Other specified postprocedural states; Z88.0 Allergy status to penicillin; Z79.51 Long term (current) use of inhaled steroids; Z91.14 Patient's other noncompliance with medication regimen
CPT/HCPCS: 36415; 80053; 81000; 82150; 83690; 84439; 84443; 84703; 85025; 86141; 99283

== ENCOUNTER → 2018-05-02 | Outpatient (CLI) | payer BC ==
[~2018-05-02] MED LIST changes: +IOHEXOL 350 MG/ML 100 ML (OMNIPAQUE 350) VIAL IV ONE; +NS 250 ML (IVPB) BAG IV ONE
--- NOTE | 2018-05-02 08:38 | Diagnostic Imaging Report ---
PROCEDURE: CT chest with contrast only. TECHNIQUE: Multiple contiguous axial images were obtained through the chest after administration of intravenous contrast. INDICATION: Chest pressure, cough and shortness of breath. COMPARISON: Comparison is made with chest x-ray from 04/06/2018. FINDINGS: No axillary lymphadenopathy is identified. No hilar or mediastinal lymphadenopathy is identified. No pericardial or pleural fluid is identified. Calcified granuloma in left upper lobe is noted. No noncalcified nodules, infiltrates or masses are seen. The central airways are patent. The upper abdomen is unremarkable. IMPRESSION: Essentially unremarkable CT of the chest. No thoracic lymphadenopathy, pulmonary mass or infiltrate is detected. Dictated by: Dictated on workstation # [id number]
== END ==
LOC: RAD 07:47
PROVIDERS: ATTEND Nurse Practitioner Family
DX: R06.02 Shortness of breath (principal); R05 Cough; R07.89 Other chest pain
CPT/HCPCS: 71260; 87070; 87205